=== PATIENT | male | born 1960 | race Caucasian/White ===

== ENCOUNTER 2023-11-01 13:49 | Outpatient (CLI) | payer OTHER ==
[2023-11-01 15:32] LABS: #Basophils 0.1 10x3/uL (0.0-0.2); #Eosinphils 0.2 10x3/uL (0.0-0.5); #Monocytes 0.6 10x3/uL (0.0-1.1); #Neutrophils 4.8 10x3/uL (1.5-8.4); %Basophils 0.8 % (0.0-2.0); %Eosinophils 2.6 % (0.0-6.0); %Lymphocytes 26.3 % (18.0-47.0); %Monocytes 8.1 % (0.0-10.0); %Neutrophils 61.9 % (40.0-75.0); Hematocrit 43.7 % (38.8-50.0); Hemoglobin 14.7 g/dL (13.5-17.5); Mean Corpuscular HGB CONC 33.6 g/dL (32.0-36.0); Mean Corpuscular Hemoglobin 32.1 pg (27.0-33.0); Mean Corpuscular Volume 95.4 fl (81.2-95.1); Mean Platelet Volume 8.6 fl (7.4-10.4); Platelet Count 363 10x3/uL (150-450); RBC Distribution Width 12.7 % (11.5-14.5); Red Blood Cell (RBC) Count 4.58 10x6/uL (4.32-5.72); White Blood Cell (WBC) Count 7.8 10x3/uL (3.5-10.5)
[2023-11-01 15:55] LABS: Anion Gap 13 mmol/L (10-20); BUN (Urea Nitrogen) 12 mg/dL (8.4-25.7); Calc. Creatinine Clearance 0 mL/min (70-130); Calcium 9.5 mg/dL (7.8-10.44); Carbon Dioxide 26 mmol/L (23-31); Chloride 104 mmol/L (98-107); Estimated GFR 80; Glucose 81 mg/dL (80-115); Potassium 4.4 mmol/L (3.5-5.1); Sodium 139 mmol/L (136-145)
== END 2023-11-01 13:50 | disposition home or self-care (01) ==
LOC: LABBT 13:49
PROVIDERS: ATTEND Specialist
DX: Z01.818 Encounter for other preprocedural examination (principal); K62.1 Rectal polyp
CPT/HCPCS: 71046; 80048; 85025; 93005; 93010

== ENCOUNTER 2023-11-04 10:23 | Day surgery (SDC) | payer OTHER ==
[2023-11-01 14:43] VITALS: BMI 20.7
[2023-11-04] MEDS ORDERED: Acetaminophen 500 MG TAB ONE (10:41)
[2023-11-04] MEDS ORDERED: Ketorolac Tromethamine 30 MG (1 mL) VIAL ONE (10:41)
[2023-11-04] MEDS ORDERED: PROPOFOL 20 ML ONE ×2 (11:54→11:55)
[2023-11-04] MEDS ORDERED: Lidocaine 1% PF 5 ML VIAL ONE (11:55)
[2023-11-04] MEDS ORDERED: fentaNYL PF 100 MCG/2 ML SYRINGE ONE (11:55)
[2023-11-04] MEDS ORDERED: EPINEPHrine 1 MG/ML VIAL ONE (11:59)
[2023-11-04] MEDS ORDERED: Bupivacaine 0.25% HCL 30 ML VIAL ONE (11:59)
[2023-11-04] MEDS ORDERED: Bacitracin Zinc Ointment 30 gm TUBE ONE (11:59)
[2023-11-04] MEDS ORDERED: CEFAZOLIN 2 GM VIAL ONE (12:07)
[2023-11-04] MEDS ORDERED: Sodium Chloride 0.9% 100 ML ONE (12:07)
[2023-11-04] MEDS ORDERED: Midazolam HCl 2 mg/2 ml Vial ONE (12:34)
[2023-11-04] MEDS ORDERED: Dexamethasone 4 mg/ml Vial ONE (12:47)
[2023-11-04] MEDS ORDERED: Ondansetron PF 4 MG/2 ML Vial ONE (13:17)
== END 2023-11-04 14:45 | disposition home or self-care (01) ==
LOC: SDC 10:23
PROVIDERS: ATTEND Specialist
PROC: 0DBP0ZZ Excision of Rectum, Open Approach (ICD-10-PCS; principal; 2023-11-04)
DX: D12.8 Benign neoplasm of rectum (principal); F17.200 Nicotine dependence, unspecified, uncomplicated
CPT/HCPCS: 88305; J0171; J0665; J1100; J1885; J2250; J2405; J2704; J3490